=== PATIENT | male | born 1955 | race Caucasian/White ===

== ENCOUNTER 2019-01-06 06:13 | Emergency (ER) | payer OTHER, MEDICARE ==
[2019-01-06] MEDS ORDERED: Sodium Chloride 0.9% 2.5 ML Syringe FLUSH PRN (06:23)
[2019-01-06] MEDS ORDERED: Sodium Chloride 0.9% 10 ML Syringe FLUSH PRN (06:23)
[2019-01-06] MEDS ORDERED: Sodium Chloride 0.9% 1,000 ML IV ONE (06:28)
[2019-01-06] MEDS ORDERED: Morphine 2 MG/ML Syringe IVPUSH ONE (06:28)
[2019-01-06] MEDS ORDERED: Ondansetron 4 MG/2 ML SDV IVPUSH ONE (06:28)
--- NOTE | 2019-01-06 06:30 | EDM.PDOC ---
<Ashley Young - Last Filed: 01/06/19 06:41> ED HPI GENERAL MEDICAL PROBLEM - General Chief Complaint: Abdominal Pain Stated Complaint: ABDOMINAL PAIN LEFT SIDE Time Seen by Provider: 01/06/19 06:22 - History of Present Illness INITIAL COMMENTS - FREE TEXT/NARRATIVE: HISTORY AND PHYSICAL: History of present illness: Patient is a 63-year-old male with a history of appendectomy and screening colonoscopy as well as TURP who has no significant GI or history and presents with onset of left lower quadrant pain that started about 5:30 AM associated with nausea and diaphoresis. The patient woke up this morning not feeling the pain and it did not come on suddenly but more gradual and it was associated with nausea and diaphoresis but no vomiting or diarrhea. He has had normal bowel movements and did have a screening colonoscopy in his history which was negative. He has no hematuria dysuria frequency or flank pain. He says that yesterday he had a normal day without any trauma or systemic complaints. He has never had any pain like this before in the past. He has been eating and drinking normally. Since the pain started he has not taken anything for the pain and he describes it as a deep aching sensation. He has not had any testicular pain or swelling. He currently has no chest pain or shortness of breath but says with the onset of pain he did feel like he was somewhat short of breath. He has not had any fevers associated with this or upper respiratory symptoms. With the pain and the patient's symptoms he did not pass out or black out but he was told by coworkers that he looked very pale and that he should seek medical treatment. He never felt dizzy or lightheaded. He denies any right- sided abdominal pain or upper abdominal pain and does not feel bloated. Review of systems: As per history of present illness and below otherwise all systems reviewed and negative. Past medical history: As per history of present illness and as reviewed below otherwise noncontributory. Surgical history: As per history of present illness and as reviewed below otherwise noncontributory. Social history: No reported history of drug or alcohol abuse. Family history: As per history of present illness and as reviewed below otherwise noncontributory. Physical exam: General: Well-developed well-nourished man who is nontoxic and vital signs are noted by me. HEENT: Atraumatic, normocephalic, pupils reactive, negative for conjunctival pallor or scleral icterus, mucous membranes moist, throat clear, neck supple, nontender, trachea midline. Lungs: Clear to auscultation, breath sounds equal bilaterally, chest nontender. Heart: S1S2, regular, negative for clicks, rubs, or JVD. Abdomen: Soft, nondistended, bowel sounds are normoactive and there is no tympany on percussion. There is mild tenderness with deep palpation in the left lower quadrant without rebound or guarding and there is no upper abdominal tenderness fullness or masses and no right-sided abdominal tenderness on palpation. Negative for masses or hepatosplenomegaly. Negative for costovertebral tenderness. Pelvis: Stable nontender. Genitourinary: Deferred. Rectal: Deferred. Extremities: Atraumatic, negative for cords or calf pain. Neurovascular unremarkable. Neuro: Awake, alert, oriented. Cranial nerves II through XII unremarkable. Cerebellum unremarkable. Motor and sensory unremarkable throughout. Exam nonfocal. Diagnostics: EKG CBC CMP lactic acid UA lipase CT scan of the abdomen and pelvis Therapeutics: IV O2 monitor IV fluids morphine Zofran 0650: Case is endorsed to Dr. Olsen to follow-up the lab tests as well as the CT scan results for disposition and care plan. Impression: Left lower abdominal pain Definitive disposition and diagnosis as appropriate pending reevaluation and review of above. Left Lower Abdomen Pain Score (Numeric/FACES): 6 - Related Data Allergies Allergy/AdvReac Type Severity Reaction Status Date / Time No Known Allergies Allergy Verified 01/06/19 06:22 Home Meds: Home Meds Finasteride 5 mg PO DAILY 01/06/19 [History] Tamsulosin HCl [Flomax] 0.4 mg PO DAILY #14 cap.er.24h 01/06/19 [Rx] traMADol HCl [Tramadol HCl] 50 mg PO Q6H PRN #16 tablet 01/06/19 [Rx] Past Medical History HEENT History: Reports: Cataract, Impaired Vision Other HEENT History: wears glasses Cardiovascular History: Reports: None Respiratory History: Reports: None Musculoskeletal History: Reports: None Neurological History: Reports: None Psychiatric History: Reports: None Endocrine/Metabolic History: Reports: None Hematologic History: Reports: None Immunologic History: Reports: None Oncologic (Cancer) History: Reports: None Dermatologic History: Reports: None - Infectious Disease History Infectious Disease History: Reports: Chicken Pox - Past Surgical History Head Surgeries/Procedures: Reports: None HEENT Surgical History: Reports: Cataract Surgery Other HEENT Surgeries/Procedures: bilateral cataract surgery GI Surgical History: Reports: Appendectomy, Colonoscopy Male Surgical History: Reports: Other (See Below) Other Male Surgeries/Procedures: prostate surgery Social & Family History - Tobacco Use Smoking Status *Q: Never Smoker - Caffeine Use Caffeine Use: Reports: Tea - Recreational Drug Use Recreational Drug Use: No ED ROS GENERAL - Review of Systems Review Of Systems: ROS reveals no pertinent complaints other than HPI. ED EXAM, GENERAL - Physical Exam Exam: See Below (See dictation) Course - Vital Signs Last Recorded V/S: Last Vital Signs Temp 96.8 F 01/06/19 08:09 Pulse 66 01/06/19 08:09 Resp 19 01/06/19 06:54 BP 116/68 01/06/19 08:09 Pulse Ox 91 L 01/06/19 08:09 - Orders/Labs/Meds Orders: Active Orders 24 hr Category Date Time Status Cardiac Monitoring [RC] . DIRECTED Care 01/06/19 06:23 Active EKG Documentation Completion [RC] STAT Care 01/06/19 06:23 Active Oxygen Therapy, ED [RC] ASDIRECTED Care 01/06/19 06:23 Active Pulse Oximetry [RC] ASDIRECTED Care 01/06/19 06:23 Active Sodium Chloride 0.9% [Saline Flush] Med 01/06/19 06:23 Active 10 ml FLUSH ASDIRECTED PRN Sodium Chloride 0.9% [Saline Flush] Med 01/06/19 06:23 Active 2.5 ml FLUSH ASDIRECTED PRN Saline Lock Insert [OM.PC] Stat Oth 01/06/19 06:23 Ordered Medication Orders Sodium Chloride (Saline Flush) 10 ml FLUSH ASDIRECTED PRN PRN Reason: Keep Vein Open Last Admin: 01/06/19 06:49 Dose: 10 ml Sodium Chloride (Saline Flush) 2.5 ml FLUSH ASDIRECTED PRN PRN Reason: Keep Vein Open Last Admin: 01/06/19 06:49 Dose: 2.5 ml Labs: Laboratory Tests 01/06/19 01/06/19 01/06/19 Range/Units 06:45 06:45 06:45 WBC 5.84 (4.0-11.0) K/uL RBC 5.05 (4.50-5.90) M/uL Hgb 15.4 (13.0-17.0) g/dL Hct 46.3 (38.0-50.0) % MCV 91.7 (80.0-98.0) fL MCH 30.5 (27.0-32.0) pg MCHC 33.3 (31.0-37.0) g/dL RDW Std Deviation 45.8 (28.0-62.0) fl RDW Coeff of Moshe 14 (11.0-15.0) % Plt Count 190 (150-400) K/uL MPV 11.70 (7.40-12.00) fL Neut % (Auto) 56.1 (48.0-80.0) % Lymph % (Auto) 30.1 (16.0-40.0) % Billings % (Auto) 11.3 (0.0-15.0) % Eos % (Auto) 2.2 (0.0-7.0) % Baso % (Auto) 0.3 (0.0-1.5) % Neut # (Auto) 3.3 (1.4-5.7) K/uL Lymph # (Auto) 1.8 (0.6-2.4) K/uL Billings # (Auto) 0.7 (0.0-0.8) K/uL Eos # (Auto) 0.1 (0.0-0.7) K/uL Baso # (Auto) 0.0 (0.0-0.1) K/uL Nucleated RBC % 0.0 /100WBC Nucleated RBCs # 0 K/uL Lactate 1.9 (0.20-2.00) mmol/L Sodium 142 (136-148) mmol/L Potassium 4.0 (3.5-5.1) mmol/L Chloride 105 (98-107) mmol/L Carbon Dioxide 25.5 (21.0-32.0) mmol/L BUN 15 (7.0-18.0) mg/dL Creatinine 1.1 (0.8-1.3) mg/dL Est Cr Clr Drug Dosing 75.66 mL/min Estimated GFR (MDRD) > 60.0 ml/min Glucose 112 H (74-106) mg/dL Calcium 9.6 (8.5-10.1) mg/dL Total Bilirubin 1.0 (0.2-1.0) mg/dL AST 27 (15-37) IU/L ALT 34 (14-63) IU/L Alkaline Phosphatase 77 (46-116) U/L Total Protein 6.9 (6.4-8.2) g/dL Albumin 3.7 (3.4-5.0) g/dL Globulin 3.2 (2.6-4.0) g/dL Albumin/Globulin Ratio 1.2 (0.9-1.6) Lipase 130 (73-393) U/L Urine Color Urine Appearance Urine pH (5.0-8.0) Ur Specific Alvarado (1.001-1.035) Urine Protein (NEGATIVE) mg/dL Urine Glucose (UA) (NEGATIVE) mg/dL Urine Ketones (NEGATIVE) mg/dL Urine Occult Blood (NEGATIVE) Urine Nitrite (NEGATIVE) Urine Bilirubin (NEGATIVE) Urine Urobilinogen (<2.0) EU/dL Ur Leukocyte Esterase (NEGATIVE) Urine RBC (0-2/HPF) Urine WBC (0-5/HPF) Ur Epithelial Cells (NONE-FEW) Urine Bacteria (NEGATIVE) Urine Mucus (NONE-MOD) 01/06/19 Range/Units 06:45 WBC (4.0-11.0) K/uL RBC (4.50-5.90) M/uL Hgb (13.0-17.0) g/dL Hct (38.0-50.0) % MCV (80.0-98.0) fL MCH (27.0-32.0) pg MCHC (31.0-37.0) g/dL RDW Std Deviation (28.0-62.0) fl RDW Coeff of Moshe (11.0-15.0) % Plt Count (150-400) K/uL MPV (7.40-12.00) fL Neut % (Auto) (48.0-80.0) % Lymph % (Auto) (16.0-40.0) % Billings % (Auto) (0.0-15.0) % Eos % (Auto) (0.0-7.0) % Baso % (Auto) (0.0-1.5) % Neut # (Auto) (1.4-5.7) K/uL Lymph # (Auto) (0.6-2.4) K/uL Billings # (Auto) (0.0-0.8) K/uL Eos # (Auto) (0.0-0.7) K/uL Baso # (Auto) (0.0-0.1) K/uL Nucleated RBC % /100WBC Nucleated RBCs # K/uL Lactate (0.20-2.00) mmol/L Sodium (136-148) mmol/L Potassium (3.5-5.1) mmol/L Chloride (98-107) mmol/L Carbon Dioxide (21.0-32.0) mmol/L BUN (7.0-18.0) mg/dL Creatinine (0.8-1.3) mg/dL Est Cr Clr Drug Dosing mL/min Estimated GFR (MDRD) ml/min Glucose (74-106) mg/dL Calcium (8.5-10.1) mg/dL Total Bilirubin (0.2-1.0) mg/dL AST (15-37) IU/L ALT (14-63) IU/L Alkaline Phosphatase (46-116) U/L Total Protein (6.4-8.2) g/dL Albumin (3.4-5.0) g/dL Globulin (2.6-4.0) g/dL Albumin/Globulin Ratio (0.9-1.6) Lipase (73-393) U/L Urine Color DARK YELLOW Urine Appearance CLOUDY Urine pH 6.5 (5.0-8.0) Ur Specific [place]varado 1.025 (1.001-1.035) Urine Protein TRACE H (NEGATIVE) mg/dL Urine Glucose (UA) NEGATIVE (NEGATIVE) mg/dL Urine Ketones NEGATIVE (NEGATIVE) mg/dL Urine Occult Blood LARGE H (NEGATIVE) Urine Nitrite NEGATIVE (NEGATIVE) Urine Bilirubin NEGATIVE (NEGATIVE) Urine Urobilinogen 0.2 (<2.0) EU/dL Ur Leukocyte Esterase NEGATIVE (NEGATIVE) Urine RBC TOO NUMEROUS TO CT (0-2/HPF) Urine WBC 0-2 (0-5/HPF) Ur Epithelial Cells OCCASIONAL (NONE-FEW) Urine Bacteria FEW (NEGATIVE) Urine Mucus LIGHT (NONE-MOD) Meds: Medications Generic Name Dose Route Start Last Admin Trade Name Deanna PRN Reason Stop Dose Admin Sodium Chloride 10 ml 01/06/19 06:23 01/06/19 06:49 Saline Flush FLUSH 10 ml ASDIRECTED PRN Administration Keep Vein Open Sodium Chloride 2.5 ml 01/06/19 06:23 01/06/19 06:49 Saline Flush FLUSH 2.5 ml ASDIRECTED PRN Administration Keep Vein Open Discontinued Medications Generic Name Dose Route Start Last Admin Trade Name Deanna PRN Reason Stop Dose Admin Sodium Chloride 1,000 mls @ 999 mls/hr 01/06/19 06:28 01/06/19 06:45 Normal Saline IV 01/06/19 07:28 999 mls/hr STAT ONE Administration Ketorolac Tromethamine 15 mg 01/06/19 07:31 01/06/19 07:36 Toradol IVPUSH 01/06/19 07:32 15 mg ONETIME ONE Administration Morphine Sulfate 2 mg 01/06/19 06:28 01/06/19 06:46 Morphine IVPUSH 01/06/19 06:29 2 mg ONETIME ONE Administration Ondansetron HCl 4 mg 01/06/19 06:28 01/06/19 06:46 Zofran IVPUSH 01/06/19 06:29 4 mg ONETIME ONE Administration Tamsulosin HCl 0.4 mg 01/06/19 08:59 Flomax PO 01/06/19 09:00 ONETIME ONE Departure - Departure Disposition: Home, Self-Care 01 Clinical Impression: Ureterolithiasis - Discharge Information Prescriptions: Tamsulosin HCl [Flomax] 0.4 mg PO DAILY #14 cap.er.24h traMADol HCl [Tramadol HCl] 50 mg PO Q6H PRN #16 tablet PRN Reason: Pain Referrals: Pantera Cisneros MD [Primary Care Provider] - Forms: ED Department Discharge Additional Instructions: The following information is given to patients seen in the emergency department who are being discharged to home. This information is to outline your options for follow-up care. We provide all patients seen in our emergency department with a follow-up referral. The need for follow-up, as well as the timing and circumstances, are variable depending upon the specifics of your emergency department visit. If you don't have a primary care physician on staff, we will provide you with a referral. We always advise you to contact your personal physician following an emergency department visit to inform them of the circumstance of the visit and for follow-up with them and/or the need for any referrals to a consulting specialist. The emergency department will also refer you to a specialist when appropriate. This referral assures that you have the opportunity for follow-up care with a specialist. All of these measure are taken in an effort to provide you with optimal care, which includes your follow-up. Under all circumstances we always encourage you to contact your private physician who remains a resource for coordinating your care. When calling for follow-up care, please make the office aware that this follow-up is from your recent emergency room visit. If for any reason you are refused follow-up, please contact the [facility] Emergency Department at and asked to speak to the emergency department charge nurse. Follow-up with Dr. Boo at 1:30 this afternoon. Take meds as directed, follow up with your primary care physician, return to ER if symptoms worsen or change. [facility] - Urology [address] [place] [address] <Dinah Olsen - Last Filed: 01/06/19 09:07> ED HPI GENERAL MEDICAL PROBLEM - History of Present Illness INITIAL COMMENTS - FREE TEXT/NARRATIVE: Patient had large hematuria in his UA and his CT was changed to a noncontrast scan which showed a 4 cm obstructing stone at the UVJ on the left. She was given Toradol with relief of pain and a dose of Flomax here. He is being sent to Dr. Boo's office at 1:30 this afternoon for evaluation. Departure - Departure Time of Disposition: 09:05 Condition: Good - Discharge Information *PRESCRIPTION DRUG MONITORING PROGRAM REVIEWED*: No *COPY OF PRESCRIPTION DRUG MONITORING REPORT IN PATIENT CLARICE: No
[2019-01-06 07:31] LABS: BLOOD UREA NITROGEN,BUN 15 mg/dL (7.0-18.0); CARBON DIOXIDE,CO2 25.5 mmol/L (21.0-32.0); CHLORIDE,CL 105 mmol/L (98-107); GLUCOSE RANDOM 112 mg/dL (74-106); LIPASE 130 U/L (73-393); SODIUM,NA 142 mmol/L (136-148)
[2019-01-06] MEDS ORDERED: Ketorolac 30 MG/ML SDV IVPUSH ONE (07:31)
--- NOTE | 2019-01-06 08:53 | CT ---
INDICATION: Left flank/lower abdominal pain. Hematuria. TECHNIQUE: Volumetric helical scanning of the abdomen and pelvis was performed without contrast material. Coronal and sagittal reconstructions were obtained. COMPARISON: Abdomen/pelvis CT of 04/11/2018. FINDINGS: An acutely obstructing 4 x 3 x 3 mm left UVJ stone is demonstrated. This stone was in the left collecting system on the previous exam. Mild hydroureter and hydronephrosis is demonstrated as well as mild periureteral stranding. No other stone is evident. The kidneys are normal in size, shape and attenuation. The bladder is grossly negative. The prostate is moderate to markedly enlarged. No free fluid is evident. The liver is normal in size, shape and attenuation. No bile duct dilation is evident. The spleen is within normal limits. The adrenal glands are unremarkable. The pancreas is within normal limits. No lymphadenopathy is evident. The bowel is unremarkable except for a hiatal hernia of moderate to large size. The lung bases are clear. The heart is normal in size. Calcified coronary arterial plaque is demonstrated. IMPRESSION: 1. Acutely obstructing 4 x 3 x 3 mm left UVJ stone. 2. Moderate to marked prostate enlargement. 3. Hiatal hernia of moderate to large size. 4. Coronary artery disease. Please note that all CT scans at this facility use dose modulation, iterative reconstruction, and/or weight-based dosing when appropriate to reduce radiation dose to as low as reasonably achievable. Dictated by Master Delarosa MD @ Jan 06 2019 8:40AM Signed by Dr. Master Delarosa @ Jan 06 2019 8:53AM
[2019-01-06] MEDS ORDERED: Tamsulosin 0.4 MG Cap.ER PO ONE (08:59)
== END 2019-01-06 09:32 | disposition home or self-care (01) ==
LOC: MW.ED 06:13
DX: N13.2 Hydronephrosis with renal and ureteral calculous obstruction (principal); Z90.49 Acquired absence of other specified parts of digestive tract
CPT/HCPCS: 74176; 80053; 81001; 83605; 83690; 85025; 93005; 96361; 96374; 96375; 99284; A9270; J1885; J2270; J2405; J7040

== ENCOUNTER 2019-01-06 18:12 | Emergency (ER) | payer OTHER, MEDICARE ==
[2019-01-06] MEDS ORDERED: Ketorolac 30 MG/ML SDV IVPUSH ONE (19:20)
[2019-01-06] MEDS ORDERED: Morphine 2 MG/ML Syringe IVPUSH ONE (19:20)
[2019-01-06] MEDS ORDERED: Sodium Chloride 0.9% 2.5 ML Syringe FLUSH PRN (19:20)
[2019-01-06] MEDS ORDERED: Ondansetron 4 MG/2 ML SDV IVPUSH ONE ×2 (19:20→20:36)
[2019-01-06] MEDS ORDERED: Sodium Chloride 0.9% 10 ML Syringe FLUSH PRN (19:20)
[2019-01-06] MEDS ORDERED: Sodium Chloride 0.9% 1,000 ML IV ONE (19:20)
--- NOTE | 2019-01-06 19:24 | EDM.PDOC ---
ED HPI GENERAL MEDICAL PROBLEM - General Chief Complaint: Genitourinary Problem Stated Complaint: PT HAS KIDNEY STONES Time Seen by Provider: 01/06/19 18:31 - History of Present Illness INITIAL COMMENTS - FREE TEXT/NARRATIVE: HISTORY AND PHYSICAL: History of present illness: The patient is a 63-year-old male who was seen here this morning by me and endorsed to Dr. Olsen who eventually was diagnosed with a left UVJ stone which was 4 x 3 x 3 mm and the patient was discharged home on Flomax and tramadol. He was seen by Dr. Boo in the clinic this afternoon and the plan was to wait and see if he could pass it spontaneously. According to patient and at bedside that he has not been able to tolerate the pain medication and he has been uncomfortable all day and has had intractable vomiting. He has been passing his urine but says that he cannot take the pain medication because of the vomiting. He is here for pain management and the vomiting. Review of systems: As per history of present illness and below otherwise all systems reviewed and negative. Past medical history: As per history of present illness and as reviewed below otherwise noncontributory. Surgical history: As per history of present illness and as reviewed below otherwise noncontributory. Social history: No reported history of drug or alcohol abuse. Family history: As per history of present illness and as reviewed below otherwise noncontributory. Physical exam: General: Well-developed well-nourished man who is nontoxic and vital signs are noted by me. He looks somewhat punky in the bed but is resting comfortably on my evaluation HEENT: Atraumatic, normocephalic, negative for conjunctival pallor or scleral icterus, mucous membranes moist, throat clear, neck supple, nontender, trachea midline. Lungs: Clear to auscultation, breath sounds equal bilaterally, chest nontender. Heart: S1S2, regular rate and rhythm no overt murmurs Abdomen: Soft, nondistended, nontender. Negative for masses or hepatosplenomegaly. NABS Pelvis: Stable nontender. Genitourinary: Deferred. Rectal: Deferred. Extremities: Atraumatic, negative for cords or calf pain. Neurovascular unremarkable. Neuro: Awake, alert, oriented. Cranial nerves II through XII unremarkable. Cerebellum unremarkable. Motor and sensory unremarkable throughout. Exam nonfocal. Diagnostics: CBC CMP Therapeutics: IV fluids Zofran morphine Toradol and Dilaudid 2030: Patient is still feeling a little bit nauseated but I will give him a by mouth challenge and he is still having some discomfort but it is significantly improved. We will try a dose of Dilaudid and reevaluate to see if we can get the patient home to try for spontaneous passage of the stone and I will recontact Dr. Boo as needed pending reevaluation. 0: Patient is feeling much and taking by mouth sips. He says the pain is much better nasal longer nauseated. I will give him Percocet and Zofran for home and have advised him that if these medications do not work he needs to contact Dr. Boo and update him and re-see him. He has Flomax at home and urine strainers which I told him to continue to use Impression: Left ureterolithiasis with vomiting and pain, reevaluation Definitive disposition and diagnosis as appropriate pending reevaluation and review of above. Left Abdominal Pain Score (Numeric/FACES): 10 - Related Data Allergies Allergy/AdvReac Type Severity Reaction Status Date / Time acetaminophen [From Lortab] Allergy Vomiting Verified 01/06/19 18:30 hydrocodone [From Lortab] Allergy Vomiting Verified 01/06/19 18:30 Home Meds: Home Meds Finasteride 5 mg PO DAILY 01/06/19 [History] Tamsulosin HCl [Flomax] 0.4 mg PO DAILY #14 cap.er.24h 01/06/19 [Rx] traMADol HCl [Tramadol HCl] 50 mg PO Q6H PRN #16 tablet 01/06/19 [Rx] Past Medical History HEENT History: Reports: Cataract, Impaired Vision Other HEENT History: wears glasses Cardiovascular History: Reports: None Respiratory History: Reports: None Genitourinary History: Reports: Renal Calculus Musculoskeletal History: Reports: None Neurological History: Reports: None Psychiatric History: Reports: None Endocrine/Metabolic History: Reports: None Hematologic History: Reports: None Immunologic History: Reports: None Oncologic (Cancer) History: Reports: None Dermatologic History: Reports: None - Infectious Disease History Infectious Disease History: Reports: Chicken Pox - Past Surgical History Head Surgeries/Procedures: Reports: None HEENT Surgical History: Reports: Cataract Surgery Other HEENT Surgeries/Procedures: bilateral cataract surgery GI Surgical History: Reports: Appendectomy, Colonoscopy Male Surgical History: Reports: Other (See Below) Other Male Surgeries/Procedures: prostate surgery Social & Family History - Family History Family Medical History: Noncontributory - Tobacco Use Smoking Status *Q: Never Smoker Second Hand Smoke Exposure: No - Caffeine Use Caffeine Use: Reports: Coffee - Recreational Drug Use Recreational Drug Use: No ED ROS GENERAL - Review of Systems Review Of Systems: ROS reveals no pertinent complaints other than HPI. ED EXAM, GENERAL - Physical Exam Exam: See Below (See dictation) Course - Vital Signs Last Recorded V/S: Last Vital Signs Temp 36.6 C 01/06/19 18:30 Pulse 97 01/06/19 20:18 Resp 20 01/06/19 20:18 BP 116/72 01/06/19 20:18 Pulse Ox 95 01/06/19 20:18 - Orders/Labs/Meds Orders: Active Orders 24 hr Category Date Time Status Sodium Chloride 0.9% [Saline Flush] Med 01/06/19 19:20 Active 10 ml FLUSH ASDIRECTED PRN Sodium Chloride 0.9% [Saline Flush] Med 01/06/19 19:20 Active 2.5 ml FLUSH ASDIRECTED PRN Saline Lock Insert [OM.PC] Stat Oth 01/06/19 19:20 Ordered Medication Orders Sodium Chloride (Saline Flush) 10 ml FLUSH ASDIRECTED PRN PRN Reason: Keep Vein Open Sodium Chloride (Saline Flush) 2.5 ml FLUSH ASDIRECTED PRN PRN Reason: Keep Vein Open Labs: Laboratory Tests 01/06/19 01/06/19 Range/Units 19:27 19:27 WBC 11.96 H (4.0-11.0) K/uL RBC 4.88 (4.50-5.90) M/uL Hgb 14.9 (13.0-17.0) g/dL Hct 44.1 (38.0-50.0) % MCV 90.4 (80.0-98.0) fL MCH 30.5 (27.0-32.0) pg MCHC 33.8 (31.0-37.0) g/dL RDW Std Deviation 45.1 (28.0-62.0) fl RDW Coeff of Moshe 14 (11.0-15.0) % Plt Count 195 (150-400) K/uL MPV 11.70 (7.40-12.00) fL Neut % (Auto) 86.0 H (48.0-80.0) % Lymph % (Auto) 6.2 L (16.0-40.0) % [place] % (Auto) 7.6 (0.0-15.0) % Eos % (Auto) 0.0 (0.0-7.0) % Baso % (Auto) 0.2 (0.0-1.5) % Neut # (Auto) 10.3 H (1.4-5.7) K/uL Lymph # (Auto) 0.7 (0.6-2.4) K/uL [place] # (Auto) 0.9 H (0.0-0.8) K/uL Eos # (Auto) 0.0 (0.0-0.7) K/uL Baso # (Auto) 0.0 (0.0-0.1) K/uL Nucleated RBC % 0.0 /100WBC Nucleated RBCs # 0 K/uL Sodium 141 (136-148) mmol/L Potassium 4.3 (3.5-5.1) mmol/L Chloride 105 (98-107) mmol/L Carbon Dioxide 22.9 (21.0-32.0) mmol/L BUN 14 (7.0-18.0) mg/dL Creatinine 1.4 H (0.8-1.3) mg/dL Est Cr Clr Drug Dosing 59.45 mL/min Estimated GFR (MDRD) 50.9 ml/min Glucose 121 H (74-106) mg/dL Calcium 9.3 (8.5-10.1) mg/dL Total Bilirubin 1.5 H (0.2-1.0) mg/dL AST 33 (15-37) IU/L ALT 31 (14-63) IU/L Alkaline Phosphatase 72 (46-116) U/L Total Protein 6.6 (6.4-8.2) g/dL Albumin 3.6 (3.4-5.0) g/dL Globulin 3.0 (2.6-4.0) g/dL Albumin/Globulin Ratio 1.2 (0.9-1.6) Meds: Medications Generic Name Dose Route Start Last Admin Trade Name Freq PRN Reason Stop Dose Admin Sodium Chloride 10 ml 01/06/19 19:20 Saline Flush FLUSH ASDIRECTED PRN Keep Vein Open Sodium Chloride 2.5 ml 01/06/19 19:20 Saline Flush FLUSH ASDIRECTED PRN Keep Vein Open Discontinued Medications Generic Name Dose Route Start Last Admin Trade Name Freq PRN Reason Stop Dose Admin Hydromorphone HCl 1 mg 01/06/19 20:36 01/06/19 20:42 Dilaudid IVPUSH 01/06/19 20:37 1 mg ONETIME ONE Administration Sodium Chloride 1,000 mls @ 999 mls/hr 01/06/19 19:20 01/06/19 19:36 Normal Saline IV 01/06/19 20:20 999 mls/hr STAT ONE Administration Ketorolac Tromethamine 30 mg 01/06/19 19:20 01/06/19 19:37 Toradol IVPUSH 01/06/19 19:21 30 mg ONETIME ONE Administration Morphine Sulfate 2 mg 01/06/19 19:20 01/06/19 19:37 Morphine IVPUSH 01/06/19 19:21 2 mg ONETIME ONE Administration Ondansetron HCl 4 mg 01/06/19 19:20 01/06/19 19:37 Zofran IVPUSH 01/06/19 19:21 4 mg ONETIME ONE Administration Ondansetron HCl 4 mg 01/06/19 20:36 01/06/19 20:42 Zofran IVPUSH 01/06/19 20:37 4 mg ONETIME ONE Administration Departure - Departure Time of Disposition: 21:38 Disposition: Home, Self-Care 01 Condition: Good Clinical Impression: Ureterolithiasis Vomiting Qualifiers: Vomiting type: unspecified Vomiting Intractability: non-intractable Nausea presence: with nausea Qualified Code(s): R11.2 - Nausea with vomiting, unspecified - Discharge Information Referrals: Pantera Cisneros MD [Primary Care Provider] - Forms: ED Department Discharge Additional Instructions: The following information is given to patients seen in the emergency department who are being discharged to home. This information is to outline your options for follow-up care. We provide all patients seen in our emergency department with a follow-up referral. The need for follow-up, as well as the timing and circumstances, are variable depending upon the specifics of your emergency department visit. If you don't have a primary care physician on staff, we will provide you with a referral. We always advise you to contact your personal physician following an emergency department visit to inform them of the circumstance of the visit and for follow-up with them and/or the need for any referrals to a consulting specialist. The emergency department will also refer you to a specialist when appropriate. This referral assures that you have the opportunity for followup care with a specialist. All of these measure are taken in an effort to provide you with optimal care, which includes your followup. Under all circumstances we always encourage you to contact your private physician who remains a resource for coordinating your care. When calling for followup care, please make the office aware that this follow-up is from your recent emergency room visit. If for any reason you are refused follow-up, please contact the [facility] emergency department at and ask to speak to the emergency department charge nurse. [facility], [place] [id number] Continues to take the Flomax every day and strain her urine. Stop the tramadol that you have and only use as needed and start the new Percocet taking a half a tablet to 1 tablet and increasing the dose as you need up to 2 tablets every 6- 8 hours. Use Zofran for nausea and vomiting and push hydration. Contact Dr. Boo in the office you have continued issues or problems and return to ER as needed and as discussed - My Orders Last 24 Hours: My Active Orders 01/06/19 19:20 Sodium Chloride 0.9% [Saline Flush] 10 ml FLUSH ASDIRECTED PRN Sodium Chloride 0.9% [Saline Flush] 2.5 ml FLUSH ASDIRECTED PRN Saline Lock Insert [OM.PC] Stat - Assessment/Plan Last 24 Hours: My Active Orders 01/06/19 19:20 Sodium Chloride 0.9% [Saline Flush] 10 ml FLUSH ASDIRECTED PRN Sodium Chloride 0.9% [Saline Flush] 2.5 ml FLUSH ASDIRECTED PRN Saline Lock Insert [OM.PC] Stat
[2019-01-06 19:59] LABS: CARBON DIOXIDE,CO2 22.9 mmol/L (21.0-32.0); POTASSIUM,K 4.3 mmol/L (3.5-5.1)
[2019-01-06] MEDS ORDERED: HYDROmorphone 1 MG/ML Syringe IVPUSH ONE (20:36)
== END 2019-01-06 21:52 | disposition home or self-care (01) ==
LOC: MW.ED 18:12
DX: N20.1 Calculus of ureter (principal); Z88.6 Allergy status to analgesic agent; Z88.5 Allergy status to narcotic agent
CPT/HCPCS: 80053; 85025; 96361; 96374; 96375; 96376; 99284; J1170; J1885; J2270; J2405; J7040